=== PATIENT | female | born 1955 | race Caucasian/White ===

== ENCOUNTER 2016-02-25 09:54 | Emergency (ER) | payer BC ==
[~2016-02-25] VITALS: Ht 167.6 cm; Wt 74.1 kg
[~2016-02-25 09:54] MED LIST: ALLEGRA 180MG180 MG PO; ANTIVERT 25MG25 MG PO; ASPIRIN E.C. 8181 MG PO; B COMPLEX1 TA4 PO; BIO-TN500 MCG PO; CALCIUM 600MG+D1 TAB PO; CALCIUM600 MG PO; CARDI-OMEGA1000 MG PO; CARTIA XT120 MG PO; CARTIA XT180 MG PO; CLARITIN 1010 MG/TAB PO; DIFLUCAN200 MG PO; FERROUS SULFATE27 MG PO; FLEXERIL 1010 MG/TAB PO; FLEXERIL10 MG PO; FOLIC ACID 11 MG/TA1 PO; GLUCOSAMINE & C1 TER PO; HUMIRA40 MG/0.8 MR; IRON324 MG PO; IRON325 MG PO; LEVAQUIN 5500 MG/TA1 PO; LINZESS290CAP PO; MACROBID 1100 MG/CAP PO; METHOTREXA2.5 MG/TAB PO; MIRAPEX 0.0.125 MG/T PO; MOBIC 7.5MG7.5 MG PO; MULTIPLE VITAMI1 CAP PO; OSTEO-BI-FLEX 21 TAB PO; PREDNISONE10 MG PO; PREMARIN VAG42.5 GM VG; PRILOSEC 20MG20 MG PO; PRILOSEC20 MG PO; ROBAXIN 50500 MG/TAB PO; TORADOL10 MG PO; VITAMIN C BUFF500 MG PO; VITAMIN D1000 IU PO; VITAMIN E1000 U/CAP PO; VITAMINC1000TA PO; ZOFRAN 4MG T4 MG/TAB PO; ZOFRAN ODT4 MG PO; [UNRECOGNIZED DRUG - REMARK]
[2016-02-25 09:56] VITALS: BP 119/76; TEMP 97.9
[2016-02-25] MEDS ORDERED: VALIUM 2MG T2 MG/TAB PO (10:05)
[2016-02-25 10:28] LABS: BASO % 0.3 % (0.0-2.0); EOS % 0.3 % (0-4.0); GRAN # 5.9 (1.4-6.5); GRAN % 77.8 % (42.2-75.2); HEMOGLOBIN 13.8 g/dl (12.5-16.0); LYMPH # 1.4 (1.2-3.4); LYMPH % 18.1 % (20.0-51.0); MEAN CELL VOLUME 90 fl (80.0-100.0); MEAN CORPUSCULAR HEMOGLOBIN 32 pg (27.0-31.0); MEAN CORPUSCULAR HGB CONC 35 g/dl (33.0-37.0); MEAN PLATELET VOLUME 9.5 fl (7.4-10.4); MONO # 0.2 (0.1-0.6); MONO % 3.2 % (1.7-9.3); PLATELET COUNT 279 K/mm3 (130-400); RED BLOOD COUNT 4.33 M/mm3 (4.10-5.30); REDCELL DISTRIBUTION WIDTH-CV 12.5 % (11.5-14.5); WHITE BLOOD COUNT 7.5 K/mm3 (4.8-10.8)
[2016-02-25 10:48] LABS: ADJUSTED CALCIUM 9.6 mg/dL (8.4-10.2); ALANINE AMINOTRANSFERASE 26 U/L (9-52); ALBUMIN 4.4 gm/dL (3.5-5.0); ALKALINE PHOSPHATASE 56 U/L (50-136); ANION GAP 14 mmol/L (7-16); BILIRUBIN,TOTAL 0.7 mg/dL (0.0-1.0); BLOOD UREA NITROGEN 13 mg/dL (7-17); CALCIUM 9.9 mg/dL (8.4-10.2); CARBON DIOXIDE 23 mmol/L (22-30); CHLORIDE 106 mmol/L (98-107); CREATININE, serum 0.74 mg/dL (0.52-1.25); GLUCOSE 101 mg/dL (74-106); LIPASE 107 U/L (23-300); POTASSIUM 3.7 mmol/L (3.4-5.0); SODIUM 142 mmol/L (137-145); TOTAL PROTEIN 7.4 gm/dL (6.4-8.2)
[2016-02-25 11:00] LABS: B-TYPE NATRIURETIC PEPTIDE 138 pg/mL (0-125); TROPONIN-I < 0.012 ng/mL (0.000-0.034)
[2016-02-25 11:27] VITALS: PULSE 63
== END 2016-02-25 11:34 | disposition home or self-care (01) ==
LOC: COL.ER 09:54
PROVIDERS: Emergency Medicine
DX: R06.00 Dyspnea, unspecified (principal); R07.9 Chest pain, unspecified; R42 Dizziness and giddiness

== ENCOUNTER 2016-05-14 10:01 | Emergency (ER) | payer BC ==
[~2016-05-14] VITALS: Ht 167.6 cm; Wt 74.1 kg
[~2016-05-14 10:01] MED LIST changes: +VALIUM 2MG T2 MG/TAB PO
[2016-05-14 10:05] VITALS: TEMP 98.4
[2016-05-14 10:49] LABS: BASO % 0.9 % (0.0-2.0); EOS # 0.1 (0.0-0.7); EOS % 1.3 % (0-4.0); GRAN % 44.3 % (42.2-75.2); HEMATOCRIT 37.7 % (37.0-47.0); HEMOGLOBIN 13.3 g/dl (12.5-16.0); LYMPH # 2.1 (1.2-3.4); LYMPH % 45.2 % (20.0-51.0); MEAN CELL VOLUME 92 fl (80.0-100.0); MEAN CORPUSCULAR HEMOGLOBIN 33 pg (27.0-31.0); MEAN CORPUSCULAR HGB CONC 35 g/dl (33.0-37.0); MEAN PLATELET VOLUME 10.3 fl (7.4-10.4); MONO # 0.4 (0.1-0.6); MONO % 8.3 % (1.7-9.3); PLATELET COUNT 266 K/mm3 (130-400); RED BLOOD COUNT 4.08 M/mm3 (4.10-5.30); REDCELL DISTRIBUTION WIDTH-CV 12.8 % (11.5-14.5); WHITE BLOOD COUNT 4.6 K/mm3 (4.8-10.8)
[2016-05-14] MEDS ORDERED: METHOTREXATE50/2 (10:50)
[2016-05-14 10:53] LABS: PH 5 (5-8); SQUAMOUS EPITHELIAL None Seen /hpf; URINE APPEARANCE Clear; URINE BACTERIA None Seen /hpf; URINE BILIRUBIN Negative (NEGATIVE); URINE BLOOD Negative (NEGATIVE); URINE COLOR Straw; URINE GLUCOSE Negative (NEGATIVE); URINE KETONE Negative (NEGATIVE); URINE RBC 0-2 /hpf; URINE UROBILINOGEN Negative (NEGATIVE); URINE WBC 0-2 /hpf
[2016-05-14 11:05] LABS: ADJUSTED CALCIUM 8.9 mg/dL (8.4-10.2); ALANINE AMINOTRANSFERASE 21 U/L (9-52); ALBUMIN 4.6 gm/dL (3.5-5.0); ALKALINE PHOSPHATASE 60 U/L (50-136); ANION GAP 13 mmol/L (7-16); BILIRUBIN,TOTAL 0.5 mg/dL (0.0-1.0); BLOOD UREA NITROGEN 11 mg/dL (7-17); CALCIUM 9.4 mg/dL (8.4-10.2); CARBON DIOXIDE 22 mmol/L (22-30); CHLORIDE 106 mmol/L (98-107); CREATININE, serum 0.72 mg/dL (0.52-1.25); GLUCOSE 88 mg/dL (74-106); LIPASE 181 U/L (23-300); SODIUM 141 mmol/L (137-145); TOTAL PROTEIN 7.1 gm/dL (6.4-8.2)
[2016-05-14 11:06] LABS: C-REACTIVE PROTEIN < 0.5 mg/dL (0.0-0.9)
[2016-05-14 11:24] LABS: TROPONIN-I < 0.012 ng/mL (0.000-0.034)
[2016-05-14 12:28] VITALS: BP 108/61; PULSE 75
== END 2016-05-14 12:23 | disposition home or self-care (01) ==
LOC: COL.ER 10:01
PROVIDERS: Emergency Medicine
DX: I10 Essential (primary) hypertension (principal); R10.84 Generalized abdominal pain; Z90.49 Acquired absence of other specified parts of digestive tract; Z90.710 Acquired absence of both cervix and uterus

== ENCOUNTER 2016-07-01 12:12 | Emergency (ER) | payer OTHER, BC ==
[~2016-07-01] VITALS: Ht 167.6 cm; Wt 74.1 kg
[~2016-07-01 12:12] MED LIST changes: +METHOTREXATE50/2
[2016-07-01 12:13] VITALS: TEMP 98.7
[2016-07-01 14:09] VITALS: BP 126/63; PULSE 64
[2016-07-01] MEDS ORDERED: CARTIA XT120 MG PO (16:05)
== END 2016-07-01 14:09 | disposition home or self-care (01) ==
LOC: COL.ER 12:12
DX: T63.441A Toxic effect of venom of bees, accidental (unintentional), initial encounter (principal); J45.909 Unspecified asthma, uncomplicated; Z79.82 Long term (current) use of aspirin; Z87.891 Personal history of nicotine dependence
CPT/HCPCS: J2405; J7030; J7512

== ENCOUNTER → 2016-08-02 | Outpatient (CLI) | payer BC | LOC: MC.RAD 14:31 | DX: Z12.31 Encounter for screening mammogram for malignant neoplasm of breast (principal) ==

== ENCOUNTER 2016-09-26 15:41 | Emergency (ER) | payer BC ==
[~2016-09-26] VITALS: Ht 167.6 cm; Wt 72.7 kg
[2016-09-26 16:21] VITALS: TEMP 99.4
[2016-09-26 16:56] LABS: SQUAMOUS EPITHELIAL 0-2 /hpf; URINE BACTERIA None Seen /hpf; URINE RBC 0-2 /hpf
[2016-09-26 16:57] LABS: PH 5 (5-8); URINE APPEARANCE Clear; URINE BILIRUBIN Negative (NEGATIVE); URINE BLOOD Negative (NEGATIVE); URINE COLOR Yellow; URINE GLUCOSE Negative (NEGATIVE); URINE KETONE Negative (NEGATIVE); URINE UROBILINOGEN Negative (NEGATIVE)
[2016-09-26 16:58] LABS: URINE WBC 0-2 /hpf
[2016-09-26 17:36] LABS: BASO % 0.4 % (0.0-2.0); EOS # 0.1 (0.0-0.7); EOS % 0.8 % (0-4.0); GRAN # 4.9 (1.4-6.5); GRAN % 68.9 % (42.2-75.2); HEMATOCRIT 37.5 % (37.0-47.0); HEMOGLOBIN 13.2 g/dl (12.5-16.0); LYMPH # 1.4 (1.2-3.4); LYMPH % 19.7 % (20.0-51.0); MEAN CELL VOLUME 94 fl (80.0-100.0); MEAN CORPUSCULAR HEMOGLOBIN 33 pg (27.0-31.0); MEAN CORPUSCULAR HGB CONC 35 g/dl (33.0-37.0); MEAN PLATELET VOLUME 10.7 fl (7.4-10.4); MONO # 0.7 (0.1-0.6); MONO % 10.1 % (1.7-9.3); PLATELET COUNT 245 K/mm3 (130-400); REDCELL DISTRIBUTION WIDTH-CV 12.9 % (11.5-14.5); WHITE BLOOD COUNT 7.1 K/mm3 (4.8-10.8)
[2016-09-26 17:57] LABS: ERYTHROCYTE SEDIMENTATION RATE 14 mm/hr (0-30)
[2016-09-26 18:41] LABS: ADJUSTED CALCIUM 8.4 mg/dL (8.4-10.2); BILIRUBIN,TOTAL 0.6 mg/dL (0.0-1.0); C-REACTIVE PROTEIN 2.7 mg/dL (0.0-0.9); CALCIUM 8.4 mg/dL (8.4-10.2); CREATININE, serum 0.77 mg/dL (0.52-1.25); PHOSPHOROUS 3.7 mg/dL (2.5-4.5); POTASSIUM 3.8 mmol/L (3.4-5.0); TOTAL PROTEIN 6.7 gm/dL (6.4-8.2)
[2016-09-26 21:26] VITALS: BP 125/88; PULSE 81
== END 2016-09-26 21:26 | disposition home or self-care (01) ==
LOC: COL.ER 15:41
PROVIDERS: Emergency Medicine
DX: R20.9 Unspecified disturbances of skin sensation (principal); M19.071 Primary osteoarthritis, right ankle and foot; Z79.82 Long term (current) use of aspirin
CPT/HCPCS: A9585; J7030

== ENCOUNTER 2017-01-07 11:01 | Emergency (ER) | payer BC ==
[~2017-01-07] VITALS: Ht 167.6 cm; Wt 72.7 kg
[2017-01-07 11:02] VITALS: BP 121/85; TEMP 98
[2017-01-07] MEDS ORDERED: ORENCIA250 MG SQ (11:58)
[2017-01-07 12:09] LABS: BASO % 0.3 % (0.0-2.0); EOS # 0.1 (0.0-0.7); EOS % 1.5 % (0-4.0); GRAN # 3.2 (1.4-6.5); GRAN % 51.8 % (42.2-75.2); HEMATOCRIT 40.5 % (37.0-47.0); HEMOGLOBIN 14.4 g/dl (12.5-16.0); LYMPH # 2.4 (1.2-3.4); LYMPH % 39.8 % (20.0-51.0); MEAN CELL VOLUME 93 fl (80.0-100.0); MEAN CORPUSCULAR HEMOGLOBIN 33 pg (27.0-31.0); MEAN CORPUSCULAR HGB CONC 36 g/dl (33.0-37.0); MEAN PLATELET VOLUME 10.6 fl (7.4-10.4); MONO # 0.4 (0.1-0.6); MONO % 6.4 % (1.7-9.3); PLATELET COUNT 276 K/mm3 (130-400); RED BLOOD COUNT 4.38 M/mm3 (4.10-5.30); WHITE BLOOD COUNT 6.1 K/mm3 (4.8-10.8)
[2017-01-07 12:47] LABS: ADJUSTED CALCIUM 9.3 mg/dL (8.4-10.2); ALBUMIN 4.5 gm/dL (3.5-5.0); BILIRUBIN,TOTAL 0.4 mg/dL (0.0-1.0); CALCIUM 9.7 mg/dL (8.4-10.2); CREATININE, serum 0.76 mg/dL (0.52-1.25); TOTAL PROTEIN 7.1 gm/dL (6.4-8.2)
[2017-01-07 14:14] VITALS: PULSE 73
== END 2017-01-07 14:15 | disposition home or self-care (01) ==
LOC: COL.ER 11:01
PROVIDERS: Emergency Medicine
DX: R07.9 Chest pain, unspecified (principal); Z79.82 Long term (current) use of aspirin
CPT/HCPCS: J2405

== ENCOUNTER → 2018-10-12 | Outpatient (CLI) | payer OTHER ==
[~2018-10-12] MED LIST changes: +ORENCIA250 MG SQ
== END ==
LOC: COL.RAD 10-11 11:30
DX: M05.9 Rheumatoid arthritis with rheumatoid factor, unspecified (principal); R76.8 Other specified abnormal immunological findings in serum; Z95.818 Presence of other cardiac implants and grafts

== ENCOUNTER → 2019-04-04 | Outpatient (CLI) | payer OTHER | LOC: COL.PUL 03-28 10:00 | DX: R05 Cough (principal) | CPT/HCPCS: J7674 ==

== ENCOUNTER 2019-08-27 13:31 | Emergency (ER) | payer OTHER ==
[~2019-08-27] VITALS: Ht 167.6 cm; Wt 74.1 kg
[2019-08-27 13:44] VITALS: TEMP 98
[2019-08-27 14:20] LABS: BASO % 0.4 % (0.0-2.0); EOS # 0.1 (0.0-0.7); EOS % 1.1 % (0-4.0); GRAN # 4.8 (1.4-6.5); GRAN % 63.2 % (42.2-75.2); HEMATOCRIT 41.2 % (37.0-47.0); HEMOGLOBIN 14.6 g/dl (12.5-16.0); LYMPH # 2.1 (1.2-3.4); LYMPH % 27.8 % (20.0-51.0); MEAN CELL VOLUME 95 fl (80.0-100.0); MEAN CORPUSCULAR HEMOGLOBIN 34 pg (27.0-31.0); MEAN CORPUSCULAR HGB CONC 35 g/dl (33.0-37.0); MONO # 0.5 (0.1-0.6); MONO % 7.2 % (1.7-9.3); PLATELET COUNT 267 K/mm3 (130-400); RED BLOOD COUNT 4.32 M/mm3 (4.10-5.30); REDCELL DISTRIBUTION WIDTH-CV 12.3 % (11.5-14.5)
[2019-08-27 14:29] LABS: ALBUMIN 4.6 gm/dL (3.5-5.0); BILIRUBIN,TOTAL 0.4 mg/dL (0.0-1.0); CALCIUM 9.3 mg/dL (8.4-10.2); CREATININE, serum 0.66 (0.52-1.25); POTASSIUM 3.9 mmol/L (3.4-5.0); TOTAL PROTEIN 7.6 gm/dL (6.4-8.2)
[2019-08-27 14:29] LABS: COLLECTION METHOD CLEAN CATCH
[2019-08-27 14:39] LABS: MUCOUS Present /lpf; PH 6 (5-8); SQUAMOUS EPITHELIAL None Seen /hpf; URINE APPEARANCE Clear; URINE BACTERIA None Seen /hpf; URINE BILIRUBIN Negative (NEGATIVE); URINE BLOOD Negative (NEGATIVE); URINE COLOR Yellow; URINE GLUCOSE Negative (NEGATIVE); URINE KETONE Negative (NEGATIVE); URINE LEUKOCYTE ESTERASE Negative (NEGATIVE); URINE NITRATE Negative (NEGATIVE); URINE PROTEIN(semi-quant) Negative (NEGATIVE); URINE RBC 0-2 /hpf; URINE UROBILINOGEN Negative (NEGATIVE)
[2019-08-27] MEDS ORDERED: METHOTREXA2.5 MG/TAB PO (15:14)
[2019-08-27] MEDS ORDERED: LEXAPRO20 MG PO (15:15)
[2019-08-27] MEDS ORDERED: CLARITIN REDIT (15:16)
[2019-08-27] MEDS ORDERED: BREO IH (15:17)
[2019-08-27 16:04] VITALS: BP 127/69; PULSE 55
== END 2019-08-27 17:01 | disposition home or self-care (01) ==
LOC: COL.ER 13:31
PROVIDERS: Emergency Medicine
DX: R10.9 Unspecified abdominal pain (principal); Z88.0 Allergy status to penicillin; Z88.6 Allergy status to analgesic agent; Z79.82 Long term (current) use of aspirin; Z87.442 Personal history of urinary calculi
CPT/HCPCS: J1885; J2405; J3010; J7030; Q9967

== ENCOUNTER 2019-11-28 23:06 | Emergency (ER) | payer OTHER ==
[~2019-11-28] VITALS: Ht 165.1 cm; Wt 75.0 kg
[~2019-11-28 23:06] MED LIST changes: +BREO IH; +CLARITIN REDIT; +LEXAPRO20 MG PO
[2019-11-28 23:20] VITALS: TEMP 99.2
[2019-11-29] MEDS ORDERED: NAPROSYN500 MG PO (00:22)
[2019-11-29 00:41] VITALS: BP 123/75; PULSE 69
== END 2019-11-29 00:41 | disposition home or self-care (01) ==
LOC: COL.ER 23:06
DX: M25.511 Pain in right shoulder (principal); Z90.49 Acquired absence of other specified parts of digestive tract; Z90.710 Acquired absence of both cervix and uterus; Z90.89 Acquired absence of other organs; Z96.652 Presence of left artificial knee joint; Z88.0 Allergy status to penicillin; Z88.6 Allergy status to analgesic agent; Z88.5 Allergy status to narcotic agent; Z79.82 Long term (current) use of aspirin
CPT/HCPCS: J1885

== ENCOUNTER → 2020-01-02 | Outpatient (CLI) | payer OTHER ==
[~2020-01-02] MED LIST changes: +NAPROSYN500 MG PO
== END ==
LOC: COL.RAD 13:05
DX: M67.813 Other specified disorders of tendon, right shoulder (principal); S46.011A Strain of muscle(s) and tendon(s) of the rotator cuff of right shoulder, initial encounter

== ENCOUNTER → 2020-05-12 | Outpatient (REF) | LOC: ZLAB.WCH 11:23 | DX: Z01.89 Encounter for other specified special examinations (principal) ==